=== PATIENT | female | born 1945 | race Caucasian/White ===

== ENCOUNTER 2016-07-14 12:33 | Observation (INO) ==
[2016-07-14] MEDS ORDERED: SODIUM CHLORIDE 0.9% 500 ML IV STA (12:54)
--- NOTE | 2016-07-14 12:57 | EKG Report ---
Stationary ECG Study [facility] ER Test Date: 07/14/2016 12:44:43 PM Pat Name: MIAN BRIGHT Department: Room: Gender: F Shank Carrier: : 1945 Requested by: Talon Garduno Order Number: [id number] Reading MD: ALISA BIRMINGHAM Intervals [place] Rate: 56 P: 55 CO: 165 QRS: 44 QRSD: 132 T: 92 QT: 459 QTc: 450 Interpretive Statements SINUS BRADYCARDIA NONSPECIFIC INTRAVENTRICULAR CONDUCTION BLOCK POSSIBLE ANTERIOR INFARCT, AGE UNDETERMINED Electronically Signed On 07-14-16 17:29:18 TRAFFIC SIGNAL TECHNICIAN by ALISA BIRMINGHAM [email or web address]
[2016-07-14 13:10] LABS: Basophils % 0.3 % (0.0-0.8); Eosinophils # 0.1 10*3/uL (0.0-0.87); Eosinophils % 1.9 % (0.00-10.9); Hematocrit 40.3 VOL% (35.7-47.0); Hemoglobin 13.3 GM/DL (12.0-16.0); Immature Granulocytes % 0.3 %; Immature Granulocytes Absolute 0.01 #; Lymphocytes # 0.8 10*3/uL (1.4-4.0); Lymphocytes % 23.1 % (21.3-54.2); Mean Corpuscular Hemoglobin 30 PG (27-34); Mean Platelet Volume 9.7 FL (9.6-12.0); Monocytes # 0.5 10*3/uL (0.11-0.8); Monocytes % 13.1 % (1.7-12.7); Neutrophils # 2.2 10*3/uL (1.4-7.4); Neutrophils % 61.3 % (38.7-73.9); Platelet Count 194 T/CUMM (130-400); Red Blood Count 4.43 MC/CUMM (3.8-5.5); Red Cell Distribution Width 12.7 % (9.3-17.3); White Blood Count 3.6 T/CUMM (4-12)
--- NOTE | 2016-07-14 13:11 | Emergency Department Note ---
Cristina Howard Brittany, am scribing for, and in the presence of, Talon Park MD 13: 00. Vivian Howard James D, MD, personally performed the services described in this documentation, ascribed by Priscila Evans in my presence, and it is both accurate and complete . Arrival - Arrival Chief Complaint: Syncope Stated Complaint: SYNCOPE/ LOW BP/ LOW HR ED Nursing Triage Note: c/o having syncope episode today at 1140 while sitting in sikh, family states that her heart rate was low during the episode, was evaluated by dr. khan on friday and hoilter monitor till , denies having chest pain, + sob., EKG obtained at time of triage Mode of Arrival: Wheelchair Limitations: No Limitations Source: Patient, Family, RN Notes Reviewed Time Seen by Provider: 07/14/16 12:46 - History of Present Illness HPI Narrative: This is a 70 y/o female,who presents to the ED S/P syncopal episode which happened at 1140 today. Her reports they were in sikh when pt passed out. He states pt laid her head on his shoulder and when he looked at her after several minutes and he noticed she was white in color. He reports pt was diaphoretic. Patient's daughter confirms the same. Pt denies any vomiting, diarrhea, dark black BM, or chest pain. She states she is SOB. Pt denies any pain. Pt has no other complaints/pain in the ED at this time. Pt has a PMHx of CVA, NIDDM, TIA, A-fib and dementia. Patient is a very poor historian. Pt has had neurological surgery. Pt denies a family medical Hx. Pt denies a social Hx. 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 Onset (ago): hour(s) (Happened at 1140) Consistency: constant Severity: moderate Allergies/Adverse Reactions: Allergies Allergy/AdvReac Type Severity Reaction Status Date / Time No Known Allergies Allergy Verified 07/14/16 12:42 Home Medications: Home Medications Medication Instructions Recorded Confirmed Type Levothyroxine Tab [Synthroid Tab] 25 mcg PO QAM 05/13/15 07/14/16 History Cetirizine Tab [ZyrTEC Tab] 10 mg PO BEDTIME 11/12/15 07/14/16 History Clopidogrel [Plavix] 75 mg PO QAM 11/12/15 07/14/16 History Isosorbide Mononitrate [Isosorbide 30 mg PO QAM 11/12/15 07/14/16 History Mononitrate ER] Magnesium Oxide [Magnesium] 400 mg PO QAM 11/12/15 07/14/16 History Pravastatin [Pravachol] 20 mg PO BEDTIME 11/12/15 07/14/16 History Spironolactone 12.5 mg PO QAM 11/12/15 07/14/16 History glipiZIDE [Glipizide] 10 mg PO BID 11/12/15 07/14/16 History Lisinopril [Prinivil] 20 mg PO BID #60 tablet 11/15/15 07/14/16 Rx Amlodipine Besylate [Amlodipine 2.5 mg PO QAM 07/14/16 07/14/16 History Besylate] Meclizine [Antivert] 25 mg PO QID PRN 07/14/16 07/14/16 History Metformin HCl 1,000 mg PO BID 07/14/16 07/14/16 History Review of System - Review of System 12 point system: reviewed and no additional remarkable complaints except as stated - Review of System Constitutional: Present: diaphoresis Cardiovascular: Present: syncope. Absent: chest pain, dyspnea on exertion Gastrointestinal: Absent: nausea, vomiting, diarrhea, melena, hematochezia Medical,Surgical,& Family Hx - Medical History Cardio: History of: Cardiac Dysrhythmia (Afib) Neurology: History of: Cerebrovascular Accident, Dementia, TIA Endocrine: History of: Diabetes Mellitus (NIDDM) - Surgical History Neurologic Surgeries: Surgical HX of: Neurologic Surgery - Social History Smoking Status: Never smoker Frequency of Alcohol Use: None Type of Drug Use: None Exam Vital Signs: Vital Signs Temperature 98.0 F 07/14/16 13:15 Pulse Rate 61 07/14/16 13:30 Respiratory Rate 16 07/14/16 13:15 Blood Pressure 132/46 07/14/16 13:30 O2 Sat by Pulse Oximetry 100 07/14/16 12:38 GENERAL: This is a thin, chronically ill-appearing white female in no apparent distress. VITAL SIGNS: Reviewed HEENT: Head is atraumatic and normocephalic. Pupils are equal round react to light. Extraocular movements are intact. Oropharynx is benign with moist mucous membranes. NECK: Neck is soft and supple without tenderness. There are no masses. There is no lymphadenopathy. LUNGS: Lungs are clear to auscultation. Chest rises symmetrically. There is no chest wall tenderness. CV: Heart is regular rate and rhythm without murmurs rubs or gallops. ABDOMEN: Abdomen is soft, nontender to palpation. There are no abdominal abnormal masses palpated. There is no organomegaly. Bowel sounds are present and active. SKIN: Skin is warm and dry. No rash. EXTREMITIES: Patient has full range of motion without tenderness. There is no pedal edema. NEUROLOGIC: Awake alert and oriented to person. Cranial nerves II through XII are grossly intact. Motor is 4 over 5 in all extremities bilaterally. Course - Consultations Consultation #1: Discussed with Dr. Diana. Patient will be admitted to his service. Initial orders written for him. Time: 14:06 Results - Labs CBC & BMP: 07/14/16 13:04 07/14/16 13:04 Lab Results: I have reviewed the patients labs Labs: Laboratory Tests 07/14/16 07/14/16 07/14/16 12:54 13:04 13:04 WBC 3.6 L Hgb 13.3 Hct 40.3 Plt Count 194 ABG pH 7.384 ABG pCO2 38.6 ABG pO2 132.0 H ABG HCO3 23.0 ABG Total CO2 20.3 L ABG O2 Saturation 99.0 ABG Base Excess -1.7 FiO2 28.00 Sodium Potassium Chloride Carbon Dioxide Anion Gap BUN Creatinine GFR Calculation BUN/Creatinine Ratio Glucose POC Glucose Calculated Osmolality Calcium Magnesium Total Bilirubin AST ALT Alkaline Phosphatase Troponin I Total Protein Albumin Globulin Albumin/Globulin Ratio Urine pH 6.0 Ur Specific Callahan 1.013 Urine WBC <1 Hyaline Casts 3 Urine Opiates Screen Ur Barbiturates Screen Ur Phencyclidine Scrn U Amphetamine/Methamph U Benzodiazepines Scrn U Cocaine Metab Screen U Cannabinoids Screen 07/14/16 07/14/16 07/14/16 13:04 13:04 13:09 WBC Hgb Hct Plt Count ABG pH ABG pCO2 ABG pO2 ABG HCO3 ABG Total CO2 ABG O2 Saturation ABG Base Excess FiO2 Sodium 142 Potassium 4.8 Chloride 105 Carbon Dioxide 26 Anion Gap 15.8 H BUN 18 Creatinine 1.00 GFR Calculation 53 BUN/Creatinine Ratio 18.00 Glucose 164 H POC Glucose 167 H Calculated Osmolality 288.1 Calcium 9.1 Magnesium 2.0 Total Bilirubin 0.50 AST 16 ALT 16 Alkaline Phosphatase 66 Troponin I < 0.015 Total Protein 7.0 Albumin 4.0 Globulin 3.0 Albumin/Globulin Ratio 1.3 Urine pH Ur Specific Callahan Urine WBC Hyaline Casts Urine Opiates Screen Negative Ur Barbiturates Screen Negative Ur Phencyclidine Scrn Negative U Amphetamine/Methamph Negative U Benzodiazepines Scrn Negative U Cocaine Metab Screen Negative U Cannabinoids Screen Negative - EKG EKG results: interpreted by ERMD - Impressions EKG: Sinus bradycardia with a rate of 56, nonspecific intraventricular conduction delay. Old anterior NH. Normal axis. - Diagnostic Findings Procedure: Chest x-ray: image reviewed by me (No cardiomegaly, no infiltrates, no pleural effusions.), CT: image reviewed by me (CT head: No acute intracranial lesions or hemorrhage.) Disposition Clinical Impression: Syncope, Essential hypertension, Dementia, Orthostasis Case discussed with: patient, patient's family Disposition: Still a Patient Condition: Stable Time of Disposition: 13:59
[2016-07-14 13:18] LABS: PT Patient Result 10.8 SECS
[2016-07-14 13:31] LABS: ABG Base Excess -1.7 MMOL/L (-2.5-2.5); ABG PCO2 38.6 MM HG (35-48); ABG PH 7.384 (7.35-7.45); ABG TCO2 20.3 MMOL/L (23-27); Allen Test Positive
--- NOTE | 2016-07-14 13:33 | CT Report ---
CT brain Indication: Syncope Comparison: 13 May 2015 Technique: Axial CT imaging of the brain is performed without contrast with 3 mm increments. Findings: No evidence of hemorrhage, mass mass effect midline shift or acute infarct seen. The brain parenchyma attenuation and differentiation appears within normal limits. The ventricles and cisterns are normal in caliber. No cranial or skull base abnormality is identified. Impression: No evidence of abnormality demonstrated. PROCEDURE INTERPRETED AT [facility] DEPARTMENT OF RADIOLOGY Final Report Signed by: Dr. Carter Myers
--- NOTE | 2016-07-14 13:35 | XRay Report ---
XR chest 1V portable Indication: Shortness of breath Comparison: 12 November 2015 Findings: The heart and mediastinum are normal in size and configuration. The pulmonary vascularity is normal in caliber. No lung infiltrates, effusions, pneumothorax or other abnormality is demonstrated. Impression: No acute findings or significant changes. PROCEDURE INTERPRETED AT [facility] DEPARTMENT OF RADIOLOGY Final Report Signed by: Dr. Carter Myers
[2016-07-14 13:36] LABS: Alanine Aminotransferase 16 U/L (13-56); Alkaline Phosphatase 66 U/L (45-117); Aspartate Amino Transferase 16 U/L (0-37); Blood Urea Nitrogen 18 MG/DL (7-18); Calcium 9.1 MG/DL (8.5-10.1); Glucose 164 MG/DL (74-106); Osmolality,Calculated 288.1 MOS/KG (273-304); Potassium 4.8 MMOL/L (3.5-5.1); Sodium 142 MMOL/L (136-145); Troponin I Only < 0.015 NG/ML (0.00-0.045)
[2016-07-14 13:43] LABS: Apearance,Urine CLEAR (Clear); Bilirubin,Urine Negative (Negative); Blood, Urine Negative (Negative); Glucose,Urine (UA) Negative (Negative); Hyaline Casts,Urine 3 /LPF (0-3); Ketones,Urine Negative (Negative); Mucus,Urine Occasional /LPF (Occasional); Nitrite,Urine Negative (Negative); Protein,Urine Negative; Urine Color Yellow (Yellow); Urine Specific Gravity 1.013 (1.001-1.035); Urine Urobilinogen < 2.0 EU/DL (0.2-1.0); WBC,Urine <1 /HPF (0-6)
[2016-07-14 13:49] LABS: Barbiturates Screen,Urine Negative (Negative); Benzodiazepines Screen,Urine Negative (Negative); Cannabinoid Screen,Urine Negative (Negative); Opiate Screen,Urine Negative (Negative); Phencyclidine Screen,Urine Negative (Negative)
[2016-07-14] MEDS ORDERED: MAGNESIUM SULF RIDER 4 GM in PREMIX 1 EACH IV PRN (15:34)
[2016-07-14] MEDS ORDERED: MAGNESIUM SULF RIDER 2 GM in PREMIX 1 EACH IV PRN (15:34)
[2016-07-14] MEDS: SODIUM CHLORIDE 0.9% 1,000 ML IV SCH (16:00)
[2016-07-14] MEDS: ENOXAPARIN 40 MG/0.4 ML SYRINGE SUBCUT SCH (16:01)
[2016-07-14 16:52] LABS: Troponin I Only < 0.015 NG/ML (0.00-0.045)
--- NOTE | 2016-07-14 17:12 | Cardiology History & Physical ---
Assessment and Plan (1) Left carotid bruit Status: Acute Current Visit: Yes (2) Orthostasis Status: Acute Current Visit: Yes (3) Syncope Status: Acute Assessment and plan: We will observe her rhythm. She had a 48 hour Holter monitor done in our office and that is going to be for review fairly soon. We will continue close observation of her blood pressure. Current Visit: Yes (4) Poorly-controlled hypertension Status: Acute Current Visit: No History of Present Illness Chief complaint: Fainted in yarsanism again today History of present illness: Ms. Dillon is a 70 year old female which was in the 25-30% range in July 2012 but gradually improved to the point it was normal. She has a history of hypertension history of sinus bradycardia she has a history related to TIAs. She says that she was in her usual state of health and was sitting in yarsanism and began to feel hot and flushed and then became very presyncopal to the point that she felt like she had to lie down. She was diaphoretic and her heart rate was in the 40s according to her family. She was able to recover and got to the emergency room for evaluation and was admitted for her syncopal episode. She has not had exertional anginal chest pain. She has no history related to orthopnea or PND. She did have some adjustment in her medications were Dr. Cooley at the clinic and he stopped her Coreg and put her on Norvasc 2.5 mg daily. It sounds as if she is having vagal reactions. We are going to rule out carotid arterial disease. She is also complained of some vertigo symptoms which have improved with the addition of Antivert by Dr. Solomon several days ago. Home Medications Medication Instructions Recorded Confirmed Type Levothyroxine Tab [Synthroid Tab] 25 mcg PO QAM 05/13/15 07/14/16 History Cetirizine Tab [ZyrTEC Tab] 10 mg PO BEDTIME 11/12/15 07/14/16 History Clopidogrel [Plavix] 75 mg PO QAM 11/12/15 07/14/16 History Isosorbide Mononitrate [Isosorbide 30 mg PO QAM 11/12/15 07/14/16 History Mononitrate ER] Magnesium Oxide [Magnesium] 400 mg PO QAM 11/12/15 07/14/16 History Pravastatin [Pravachol] 20 mg PO BEDTIME 11/12/15 07/14/16 History Spironolactone 12.5 mg PO QAM 11/12/15 07/14/16 History glipiZIDE [Glipizide] 10 mg PO BID 11/12/15 07/14/16 History Lisinopril [Prinivil] 20 mg PO BID #60 tablet 11/15/15 07/14/16 Rx Amlodipine Besylate [Amlodipine 2.5 mg PO QAM 07/14/16 07/14/16 History Besylate] Meclizine [Antivert] 25 mg PO QID PRN 07/14/16 07/14/16 History Memantine [Namenda] 10 mg PO BID 07/14/16 07/14/16 History Metformin HCl 1,000 mg PO BID 07/14/16 07/14/16 History Allergies Allergy/AdvReac Type Severity Reaction Status Date / Time No Known Allergies Allergy Verified 07/14/16 12:42 Medical,Surgical,& Family Hx - Medical History Cardio: History of: Cardiac Dysrhythmia (Afib), Hypertension Neurology: History of: Cerebrovascular Accident, Dementia, TIA Endocrine: History of: Diabetes Mellitus (NIDDM) - Surgical History Cardiac Surgeries: Sugical HX of: Cardiac Catheterization Neurologic Surgeries: Surgical HX of: Neurologic Surgery - Social History Smoking Status: Never smoker Frequency of Alcohol Use: None Type of Drug Use: None Cardiology Physical Exam - Constitutional Vitals: Vital Signs Temp Pulse Resp BP Pulse Ox 97.2 F L 68 20 134/76 96 07/14/16 16:00 07/14/16 16:00 07/14/16 16:00 07/14/16 16:00 07/14/16 16:00 Intake and Output 07/14/16 07/14/16 07/14/16 07:59 15:59 23:59 Intake Total 500 / 500 Balance 500 / 500 Intake: IV 500 / 500 Ns 500 ml @ 999 mls/hr IV 500 / 500 1X ED BOLUS STA Rx#: [id number] Other: Weight 58.967 kg Patient Weight 07/14/16 23:59 Weight 58.967 kg Exam: Physical examination: General: The patient is awake and alert and oriented -3. Mood and affect are normal. HEENT: Normocephalic, sclera are clear there are no lid xanthelasmas noted. Oral mucosa is free of cyanosis or pallor. Neck: The neck is supple without JVD. Carotid upstrokes are normal volume and amplitude. There is a low-grade bruit on the right.. There is no palpable thyroid. Trachea is midline. Chest: Lungs: The patient is comfortable at rest without intercostal retractions or abdominal breathing. There are no adventitial sounds rales rubs rhonchi or wheezes noted. Cardiovascular: The PMI is nondisplaced. No palpable thrill S3 or S4. There is a regular rate and rhythm with no murmur rub or gallop noted. Dorsalis pedis posterior tibial pulses are 1+ and equal and femoral pulses are 2+ and equal bilaterally. Abdomen: Abdomen is soft and nontender with normal active bowel sounds. There is no palpable mass or organomegaly noted. There is no midline bruit. Extremities exam: There is no cyanosis clubbing or edema. Skin: Skin is warm and dry without ecchymosis or urticaria or skin rash. There are no palpable nodules. Musculoskeletal: There is no kyphosis or scoliosis noted. Result/EKG - Labs CBC & BMP: 07/14/16 13:04 07/14/16 13:04 Labs: Laboratory Results - last 24 hr 07/14/16 16:10 Total Creatine Kinase 25 L CK-MB (CK-2) < 1.0 Troponin I < 0.015 - EKG EKG results: interpreted by me (Sinus rhythm left bundle branch block rate 60)
[2016-07-14] MEDS ORDERED: MECLIZINE 25 MG TABLET PO PRN (17:14)
[2016-07-14 20:08] LABS: Troponin I Only < 0.015 NG/ML (0.00-0.045)
[2016-07-14] MEDS: metFORMIN 500 MG TABLET PO SCH (20:55)
[2016-07-14] MEDS: glipiZIDE 10 MG TABLET PO SCH (20:55)
[2016-07-14] MEDS: PRAVASTATIN 20 MG TABLET PO SCH (20:55)
[2016-07-14] MEDS: LISINOPRIL 20 MG TABLET PO SCH (20:56)
[2016-07-14] MEDS: CETIRIZINE 10 MG TABLET PO SCH (20:56)
[2016-07-14] MEDS: MEMANTINE 10 MG TABLET PO SCH (20:56)
[2016-07-14 23:31] LABS: Troponin I Only < 0.015 NG/ML (0.00-0.045)
[2016-07-15] MEDS: SODIUM CHLORIDE 0.9% 1,000 ML IV SCH ×3 (03:55→16:42)
[2016-07-15] MEDS: LISINOPRIL 20 MG TABLET PO SCH ×3 (04:53→20:42)
[2016-07-15] MEDS: glipiZIDE 10 MG TABLET PO SCH ×2 (08:41→20:42)
[2016-07-15] MEDS: CLOPIDOGREL 75 MG TABLET PO SCH (08:41)
[2016-07-15] MEDS: MAGNESIUM OXIDE 400 MG TABLET PO SCH (08:41)
[2016-07-15] MEDS: LEVOTHYROXINE 25 MCG TABLET PO SCH (08:41)
[2016-07-15] MEDS: metFORMIN 500 MG TABLET PO SCH ×2 (08:41→20:42)
[2016-07-15] MEDS: SPIRONOLACTONE 25 MG TABLET PO SCH (08:42)
[2016-07-15] MEDS: MEMANTINE 10 MG TABLET PO SCH ×2 (08:42→20:43)
[2016-07-15] MEDS: ISOSORBIDE MONONITRATE 30 MG TABLET PO SCH (08:42)
[2016-07-15] MEDS ORDERED: amLODIPine 2.5 MG TABLET PO SCH (09:00)
--- NOTE | 2016-07-15 10:55 | Ultrasound Report ---
History: Presyncope. Carotid bruit Date: 07/15/2016 Study: Carotid duplex ultrasound Comparison exam: January 15, 2013 Color Doppler, wave form analysis, and grayscale analysis of the cervical carotid arteries was performed. There is mild partially calcified eccentric plaque in either carotid bulb, more on the right. Waveform analysis shows proper directional flow of the cervical carotid arteries. There is antegrade flow in either vertebral artery. The distal right ICA measures 3.6 mm diameter; the left measures 3.7 mm diameter. Peak systolic velocities are as follows: Right CCA 88 cm/s Right ICA 97 cm/s Right ECA 123 cm/s Right vertebral 65 cm/s Right IC/CC ratio 1.1 Left CCA 87 cm/s Left ICA 105 cm/s Left ECA 100 cm/s Left vertebral 58 cm/s Left IC/CC ratio 1.2 There is 0-15% diameter reduction narrowing of either internal carotid artery using indirect NASCET criteria. Ultrasound images were captured and archived. Impression: No hemodynamically significant internal carotid artery stenosis PROCEDURE INTERPRETED AT [facility] DEPARTMENT OF RADIOLOGY Final Report Signed by: Dr. Susie Agarwal
--- NOTE | 2016-07-15 11:33 | Cardiology Progress Note ---
Lm Howard April RN, am scribing for, and in the presence of, Gera Beckett MD 11:33. Assessment and Plan (1) Essential hypertension Status: Chronic Current Visit: Yes (2) Syncope Status: Acute Current Visit: Yes (3) Sinus bradycardia Status: Acute Current Visit: Yes Cardiology - PN: Subj Interval history: Ms. Dillon is routinely followed by Dr. Diana. She was admitted yesterday with a syncopal episode in mandaeism. She says she became diaphoretic and hot and flushed and passed out. She was sitting down at the time and did not hit her head. Her family states that her heart rate was in the 40s. She was seen in the clinic by Dr. Pond on July 09, 2016 with complaints of dizziness and vertigo 1 month. He stopped her Coreg, added meclizine 25 mg as needed and amlodipine 2.5 mg daily. She wore a 48 hour Holter, those results are not yet available. Today she denies chest pain, shortness of breath, or palpitations. She does state that she had some "swimmy headiness" while lying in bed last night and this morning. Oxygen is in use via nasal biprong, O2 sats have been 100%. CT of the head done yesterday was negative. Carotid Dopplers are pending. Pressures have been elevated during the night, systolic 150-175 diastolic 70- 80. Currently she is in sinus nakul with heart rates in the 50's. No labs drawn today except for glucose, it is 85. Serial cardiac biomarkers have been negative. Electrolytes checked yesterday were normal. Cardiology addendum Patient examined chart reviewed and discussed with the patient and her She feels better today. Telemetry shows steady sinus rhythm in the 60s no pauses or ectopy. Blood pressure 136/80 in the right arm by me. Decreased breath sounds but clear. Regular rhythm. No murmur or gallop. Abdomen soft benign. No leg edema. Echo Doppler done February 2016 showed ejection fraction of 53% with normal left atrial size, 1+ MR, mild LVH and normal RV function with mild TR. Carotid duplex showed hemodynamically insignificant disease bilaterally, less than 15% 48 hour Holter was done at the office on July 11 Impression Vasovagal syncope. confirms that patient has erratic eating and drinking habits Plan Continue normal saline hydration Monitor Awaiting 48 hour Holter report from [facility] office Probable home tomorrow Exam (Progress Note) - Constitutional Vitals: Period Temp Pulse Resp BP Sys/Paez Pulse Ox Last 24 Hr 96.8 F-99.0 F 58-69 16-20 134-174/51-80 94-100 General appearance: normal weight, no acute distress - Head Head exam: Absent: abrasion, hematoma - Eye Eye exam: Absent: periorbital swelling, laceration to eyelids - Neck Neck exam: Absent: tenderness - Respiratory Respiratory exam: Present: clear to auscultation bilaterally, other (Oxygen via nasal biprong). Absent: accessory muscle use, chest wall tenderness - Cardiovascular Cardiovascular exam: Present: bradycardia, regular rate and rhythm - GI/Abdominal GI/Abdominal exam: Present: normal bowel sounds, soft. Absent: distended, tenderness - Extremities Exam Extremities exam: Absent: edema - Neurological Exam Neurological exam: Present: alert, oriented X3 - Psychiatric Psychiatric exam: Present: normal affect, normal mood - Skin Skin exam: Present: warm, dry Result/EKG - Labs CBC & BMP: 07/14/16 13:04 07/14/16 13:04 Lab Results: I have reviewed the past 24 hour labs Labs: Laboratory Results - last 24 hr 07/14/16 07/14/16 07/14/16 16:10 19:18 19:37 POC Glucose 208 H Total Creatine Kinase 25 L 26 CK-MB (CK-2) < 1.0 < 1.0 Troponin I < 0.015 < 0.015 07/14/16 07/15/16 22:37 07:40 POC Glucose 85 Total Creatine Kinase 24 L CK-MB (CK-2) < 1.0 Troponin I < 0.015 - EKG EKG results: interpreted by me EKG shows: bradycardia, sinus rhythm I, Gera Beckett MD, personally performed the services described in this documentation, ascribed by Jennifer Amato RN in my presence, and it is both accurate and complete .
[2016-07-15] MEDS ORDERED: amLODIPine 2.5 MG TABLET PO ONE (12:09)
[2016-07-15] MEDS: ENOXAPARIN 40 MG/0.4 ML SYRINGE SUBCUT SCH (16:42)
--- NOTE | 2016-07-15 18:47 | ECHO Report ---
[place] Jessi Exam Date: 07/15/2016 14:02 Referring Physician: Technologist: Charisma Flynn RDCS Age: 70 Ht (in): Wt (lb): Gender: F Exam Location: [facility] Echo Indications: Syncope and collapse, Cardiomyopathy, unspecified, Orthostasis, Essential (primary) hypertension BP: / HR: Rhythm: Sinus Technical Quality: Good IMPRESSIONS EF 55-60 % . Grade I/IV diastolic dysfunction (abnormal relaxation filling pattern), normal to mildly elevated filling pressures. The right ventricle is normal in size and function. The right atrium is mildly enlarged. Mild atrial enlargement in apical view (elongated LA). Mildly thickened mitral valve. Trace mitral valve regurgitation. Aortic valve sclerosis. No aortic valve regurgitation. Mild tricuspid valve regurgitation. PAP40 mmHG. Pulmonic valve not well visualized. Normal pericardium without effusion. Normal ascending aorta dimension. MEASUREMENTS (Male / Female) Normal Values 2D ECHO LV Diastolic Diameter PLAX 4.2 cm 4.2 - 5.9 / 3.9 - 5.3 cm LV Systolic Diameter PLAX 3.0 cm LV Fractional Shortening PLAX 27.9 % IVS Diastolic Thickness 1.0 cm 0.6 - 1.0 / 0.6 - 0.9 cm LVPW Diastolic Thickness 1.0 cm 0.6 - 1.0 / 0.6 - 0.9 cm RV Internal Dim ED PLAX 3.0 cm Aortic Root Diameter 2.9 cm LA Systolic Diameter LX 3.4 cm 3.0 - 4.0 / 2.7 - 3.8 cm DOPPLER TR Peak Velocity 273.0 cm/s TR Peak Gradient 29.8 mmHg FINDINGS Left Ventricle EF 55-60 %, Grade I/IV diastolic dysfunction (abnormal relaxation filling pattern), normal to mildly elevated filling pressures. Right Ventricle The right ventricle is normal in size and function. Right Atrium The right atrium is mildly enlarged. Left Atrium Mild atrial enlargement in apical view (elongated LA). Mitral Valve Mildly thickened mitral valve. Trace mitral valve regurgitation. Aortic Valve Aortic valve sclerosis. No aortic valve regurgitation. Tricuspid Valve Morphologically normal tricuspid valve. Mild tricuspid valve regurgitation. PAP40 mmHG. Pulmonic Valve Pulmonic valve not well visualized. Pericardium Normal pericardium without effusion. Aorta Normal ascending aorta dimension. Gabe Beckett (Electronically Signed) Final Date: 15 July 2016 18:46
[2016-07-15] MEDS: CETIRIZINE 10 MG TABLET PO SCH (20:42)
[2016-07-15] MEDS: PRAVASTATIN 20 MG TABLET PO SCH (20:42)
[2016-07-15] MEDS: hydrALAZINE 25 MG TABLET PO SCH (20:42)
[2016-07-16] MEDS: SODIUM CHLORIDE 0.9% 1,000 ML IV SCH ×2 (04:17→13:02)
[2016-07-16] MEDS: metFORMIN 500 MG TABLET PO SCH (08:47)
[2016-07-16] MEDS: LEVOTHYROXINE 25 MCG TABLET PO SCH (08:47)
[2016-07-16] MEDS: glipiZIDE 10 MG TABLET PO SCH (08:47)
[2016-07-16] MEDS: hydrALAZINE 25 MG TABLET PO SCH (08:47)
[2016-07-16] MEDS: MEMANTINE 10 MG TABLET PO SCH (08:48)
[2016-07-16] MEDS: LISINOPRIL 20 MG TABLET PO SCH (08:48)
[2016-07-16] MEDS: MAGNESIUM OXIDE 400 MG TABLET PO SCH (08:48)
[2016-07-16] MEDS: SPIRONOLACTONE 25 MG TABLET PO SCH (08:48)
[2016-07-16] MEDS: ISOSORBIDE MONONITRATE 30 MG TABLET PO SCH (08:48)
[2016-07-16] MEDS: CLOPIDOGREL 75 MG TABLET PO SCH (08:48)
[2016-07-16] MEDS ORDERED: amLODIPine 5 MG TABLET PO SCH (09:00)
[2016-07-16 11:28] VITALS: BP 151/63
[2016-07-16] MEDS ORDERED: amLODIPine 10 MG TABLET PO SCH (11:30)
--- NOTE | 2016-07-16 12:09 | Discharge Summary ---
Lm Howard April RN, am scribing for, and in the presence of, Gera Beckett MD 12:08. Hospital Course - Hospital Course Hospital Course: Ms. Dillon is routinely followed by Dr. Diana. She was admitted Friday with a syncopal episode in [facility]. She says she became diaphoretic and hot and flushed and passed out. She was sitting down at the time and did not hit her head. Her family states that her heart rate was in the 40s. She was seen in the clinic by Dr. Cooley on July 09, 2016 with complaints of dizziness and vertigo 1 month. He stopped her Coreg, added meclizine 25 mg as needed and amlodipine 2.5 mg daily. She wore a 48 hour Holter. The Holter was read as normal with minimum heart rate being recorded at 44 bpm and the maximum at 98 bpm, the mean heart rate was 65 bpm. During admission her amlodipine has been increased to 10 mg p.o. daily. Her pressures have improved, this morning' s blood pressure was 151/63. She is currently in sinus rhythm, heart rates have been in the 50s and 60s throughout this admission. Carotid Doppler done yesterday showed no hemodynamically significant internal carotid artery stenosis , less than 15% bilaterally. CT of the head done July 14 was negative. Echo Doppler done in February 2016 showed ejection fraction 53% with normal left atrial size, 1+ MR, mild LVH and normal RV function with mild TR. Today she denies chest pain, shortness of breath, dizziness, or feelings of syncope or near syncope. She has been ambulating in the [place] without difficulty. Impression Vasovagal syncope--discussed with patient, , and family the importance of patient improving her eating and drinking habits. Plan We will discharge home today on increased dose of amlodipine. - Time spent with patient Time with patient DS: Greater than 30 minutes Diagnosis - Discharge Diagnosis (1) Essential hypertension Status: Resolved (2) Syncope Status: Resolved (3) Sinus bradycardia Status: Chronic Specialty Discharge - Follow Up or Referrals Follow up with: Jay Jay Diana MD [Physician] - 2 Weeks Discharge Plan - Discharge Data Disposition: Disch To Home/Self Care Condition at Discharge: Stable Discharge Diet: heart healthy Activity: resume usual activities as tolerated Hygiene: no restrictions Weight Bearing at Discharge: weight bear as tolerated Driving: no restrictions Contact your physician if you experience:: fever over 101, Difficulty voiding, Redness or swelling, Nausea/Vomiting, Shortness of breath, Bleeding, pain uncontrolled by pain medications - Discharge Medications New amLODIPine [Norvasc] 10 mg PO DAILY #30 tablet Continue Levothyroxine Tab [Synthroid Tab] 25 mcg PO QAM Isosorbide Mononitrate [Isosorbide Mononitrate ER] 30 mg PO QAM Magnesium Oxide [Magnesium] 400 mg PO QAM Pravastatin [Pravachol] 20 mg PO BEDTIME Clopidogrel [Plavix] 75 mg PO QAM glipiZIDE [Glipizide] 10 mg PO BID Cetirizine Tab [ZyrTEC Tab] 10 mg PO BEDTIME Spironolactone 12.5 mg PO QAM Lisinopril [Prinivil] 20 mg PO BID #60 tablet Metformin HCl 1,000 mg PO BID Meclizine [Antivert] 25 mg PO QID PRN PRN Reason: Dizziness Memantine [Namenda] 10 mg PO BID Discontinued Amlodipine Besylate [Amlodipine Besylate] 2.5 mg PO QAM - Follow Up or Referral Follow Up: Jay Jay Diana MD [Physician] - 2 Weeks - Forms/Instructions Exam - Constitutional Vitals: Period Temp Pulse Resp BP Sys/Paez Pulse Ox Last 24 Hr 96.8 F-98.2 F 50-79 16-20 126-192/49-79 94-100 General appearance: normal weight, no acute distress - Head Head exam: Absent: abrasion, hematoma - Eye Eye exam: Absent: periorbital swelling, laceration to eyelids - Neck Neck exam: Absent: tenderness - Respiratory Respiratory exam: Present: clear to auscultation bilaterally. Absent: accessory muscle use, chest wall tenderness - Cardiovascular Cardiovascular exam: Present: bradycardia, regular rate and rhythm - GI/Abdominal GI/Abdominal exam: Present: normal bowel sounds, soft. Absent: distended, tenderness - Extremities Exam Extremities exam: Absent: edema - Neurological Exam Neurological exam: Present: alert, oriented X3 - Psychiatric Psychiatric exam: Present: normal affect, normal mood - Skin Skin exam: Present: warm, dry Discharge Results Labs on day of discharge: Labs from last 24 hours 07/16/16 07/15/16 07/15/16 07:16 19:14 15:35 POC Glucose 130 H 98 157 H 07/15/16 11:51 POC Glucose 181 H - Imaging and Cardiology Cardiology Procedure: report reviewed by me (48 hour Holter done at [facility]) Procedure: Chest x-ray: report reviewed by me DS: Provider Consults: 07/14/16 16:46 Consult to Pharmacy [CONS] Routine Reason for Pharmacy Consult: Adjust Meds Renal Funct Sophy Howard Thomas, MD, personally performed the services described in this documentation, ascribed by Jennifer Amato RN in my presence, and it is both accurate and complete .
== END 2016-07-16 14:14 | disposition home or self-care (01) | DRG 312 ==
LOC: N.ED 12:33 → N.EDINP 14:06 → INTOOBSV 14:06 → N.TELES 15:00
PROVIDERS: ADMIT Internal Medicine Interventional Cardiology; ATTEND Internal Medicine Interventional Cardiology

== ENCOUNTER 2017-05-19 11:38 | Observation (INO) ==
[2017-05-19] MEDS ORDERED: SODIUM CHLORIDE 0.9% 500 ML IV STA (12:03)
[2017-05-19] MEDS ORDERED: ATROPINE 1 MG/10 ML SYRINGE IV STA (12:05)
[2017-05-19] MEDS ORDERED: ATROPINE 1 MG/1 ML VIAL ONE (12:05)
[2017-05-19 12:10] LABS: Basophils % 0.5 % (0.0-0.8); Eosinophils # 0.1 10*3/uL (0.0-0.87); Hematocrit 38.8 VOL% (35.7-47.0); Hemoglobin 12.9 GM/DL (12.0-16.0); Immature Granulocytes % 0.5 %; Immature Granulocytes Absolute 0.02 #; Lymphocytes # 1.3 10*3/uL (1.4-4.0); Lymphocytes % 33.7 % (21.3-54.2); Mean Corpuscular HGB Conc 33.2 GM/DL (32-36); Mean Corpuscular Hemoglobin 30 PG (27-34); Mean Corpuscular Volume 90.9 FL (87-102); Mean Platelet Volume 9.6 FL (9.6-12.0); Monocytes # 0.4 10*3/uL (0.11-0.8); Monocytes % 10.2 % (1.7-12.7); Neutrophils # 1.9 10*3/uL (1.4-7.4); Neutrophils % 52.1 % (38.7-73.9); Platelet Count 230 T/CUMM (130-400); Red Blood Count 4.27 MC/CUMM (3.8-5.5); Red Cell Distribution Width 13.2 % (9.3-17.3); White Blood Count 3.7 T/CUMM (4-12)
[2017-05-19 12:19] LABS: PT Patient Result 10.4 SECS
[2017-05-19 12:47] LABS: Alanine Aminotransferase 16 U/L (13-56); Alkaline Phosphatase 75 U/L (45-117); Aspartate Amino Transferase 17 U/L (0-37); Blood Urea Nitrogen 16 MG/DL (7-18); Calcium 9.2 MG/DL (8.5-10.1); Free T4 (Free Thyroxine) 1.21 NG/DL (0.76-1.46); Glucose 201 MG/DL (74-106); Magnesium 1.6 MG/DL (1.8-2.4); Osmolality,Calculated 285.4 MOS/KG (273-304); Potassium 4.2 MMOL/L (3.5-5.1); Sodium 140 MMOL/L (136-145); Total Protein 6.8 G/DL (6.4-8.3); Troponin I Only < 0.015 NG/ML (0.00-0.045)
[2017-05-19 13:21] LABS: Apearance,Urine Slightly Hazy (Clear); Bacteria,Urine Occasional /HPF (Few); Bilirubin,Urine Negative (Negative); Blood, Urine Small mg/dL (Negative); Glucose,Urine (UA) 50 mg/dL (Negative); Granular Casts,Urine 5 /LPF (0-1); Hyaline Casts,Urine 168 /LPF (0-3); Ketones,Urine Negative (Negative); Mucus,Urine Few /LPF (Occasional); Nitrite,Urine Negative (Negative); Protein,Urine 30 MG/DL; RBC,Urine 2 /HPF (0-4); Squamous Epithelial Cell,Urine Occasional /HPF (0-10); Urine Color Yellow (Yellow); Urine Specific Gravity 1.018 (1.001-1.035); WBC,Urine 14 /HPF (0-6)
[2017-05-19] MEDS ORDERED: cefTRIAXone 1,000 MG in SODIUM CHLORIDE 0.9% 100 ML IV STA (13:29)
[2017-05-19] MEDS ORDERED: MAGNESIUM SULF RIDER 2 GM in PREMIX 1 EACH IV STA (13:29)
[2017-05-19] MEDS ORDERED: cefTRIAXone 1,000 MG VIAL ONE (13:33)
[2017-05-19] MEDS ORDERED: MAGNESIUM SULF RIDER 50 ML IV ONE (13:33)
[2017-05-19] MEDS ORDERED: ONDANSETRON 4 MG/2 ML VIAL IV PRN (15:37)
[2017-05-19] MEDS ORDERED: ACETAMINOPHEN 325 MG TABLET PO PRN (15:37)
[2017-05-19] MEDS ORDERED: BISACODYL 5 MG TABLET PO PRN (15:37)
[2017-05-19] MEDS ORDERED: LEVOFLOXACIN INJ 500 MG in PREMIX 1 EACH IV SCH (16:00)
[2017-05-19] MEDS ORDERED: GLUCAGON 1 MG VIAL IM PRN (17:03)
[2017-05-19] MEDS ORDERED: DEXTROSE 50% 25 GM/50 ML VIAL IV PRN (17:03)
[2017-05-19] MEDS ORDERED: LEVOFLOXACIN INJ 100 ML IV ONE (17:16)
[2017-05-19] MEDS: SODIUM CHLORIDE 0.9% 1,000 ML IV SCH (17:20)
[2017-05-20 07:12] LABS: Basophils % 0.4 % (0.0-0.8); Eosinophils # 0.1 10*3/uL (0.0-0.87); Hematocrit 34.4 VOL% (35.7-47.0); Hemoglobin 11.8 GM/DL (12.0-16.0); Lymphocytes # 0.8 10*3/uL (1.4-4.0); Lymphocytes % 30.8 % (21.3-54.2); Mean Corpuscular HGB Conc 34.3 GM/DL (32-36); Mean Corpuscular Hemoglobin 30 PG (27-34); Mean Corpuscular Volume 88.7 FL (87-102); Mean Platelet Volume 9.7 FL (9.6-12.0); Monocytes # 0.3 10*3/uL (0.11-0.8); Neutrophils # 1.4 10*3/uL (1.4-7.4); Neutrophils % 53.8 % (38.7-73.9); Platelet Count 199 T/CUMM (130-400); Red Blood Count 3.88 MC/CUMM (3.8-5.5); Red Cell Distribution Width 12.9 % (9.3-17.3); White Blood Count 2.7 T/CUMM (4-12)
[2017-05-20 07:26] LABS: Calcium 8.3 MG/DL (8.5-10.1)
[2017-05-20] MEDS: PANTOPRAZOLE 40 MG TABLET PO SCH (09:32)
[2017-05-20] MEDS: SODIUM CHLORIDE 0.9% 1,000 ML IV SCH (14:52)
[2017-05-20] MEDS ORDERED: GLUCAGON 1 MG VIAL IM PRN (15:17)
[2017-05-20] MEDS ORDERED: DEXTROSE 50% 25 GM/50 ML VIAL IV PRN (15:17)
[2017-05-20] MEDS ORDERED: LEVOFLOXACIN INJ 250 MG in PREMIX 1 EACH IV SCH (21:00)
[2017-05-20] MEDS: metFORMIN 500 MG TABLET PO SCH (21:23)
[2017-05-20] MEDS: LISINOPRIL 20 MG TABLET PO SCH (21:28)
[2017-05-20] MEDS: PRAVASTATIN 20 MG TABLET PO SCH (21:28)
[2017-05-20] MEDS: MEMANTINE 10 MG TABLET PO SCH (21:28)
[2017-05-20] MEDS: CETIRIZINE 10 MG TABLET PO SCH (21:29)
[2017-05-21 05:43] LABS: Basophils % 0.4 % (0.0-0.8); Eosinophils # 0.1 10*3/uL (0.0-0.87); Hematocrit 33.3 VOL% (35.7-47.0); Immature Granulocytes % 0.4 %; Immature Granulocytes Absolute 0.01 #; Lymphocytes # 0.9 10*3/uL (1.4-4.0); Lymphocytes % 37.5 % (21.3-54.2); Mean Corpuscular Hemoglobin 30 PG (27-34); Mean Corpuscular Volume 90.2 FL (87-102); Mean Platelet Volume 9.6 FL (9.6-12.0); Monocytes # 0.3 10*3/uL (0.11-0.8); Monocytes % 12.4 % (1.7-12.7); Neutrophils # 1.1 10*3/uL (1.4-7.4); Neutrophils % 45.3 % (38.7-73.9); Platelet Count 173 T/CUMM (130-400); Red Blood Count 3.69 MC/CUMM (3.8-5.5); Red Cell Distribution Width 12.9 % (9.3-17.3); White Blood Count 2.5 T/CUMM (4-12)
[2017-05-21 06:04] LABS: Ovalocytes Slight
[2017-05-21 06:05] LABS: Microcytosis Slight; Platelet Estimate Adequate
[2017-05-21 06:20] LABS: Magnesium 1.6 MG/DL (1.8-2.4); Osmolality,Calculated 287.8 MOS/KG (273-304); Potassium 4.3 MMOL/L (3.5-5.1)
[2017-05-21 06:25] LABS: Calcium 8.4 MG/DL (8.5-10.1); Osmolality,Calculated 287.8 MOS/KG (273-304); Potassium 4.3 MMOL/L (3.5-5.1)
[2017-05-21] MEDS ORDERED: DIAZEPAM 5 MG TABLET PO ONE (08:00)
[2017-05-21] MEDS ORDERED: diphenhydrAMINE CAP 25 MG CAPSULE PO ONE (08:00)
[2017-05-21] MEDS ORDERED: ceFAZolin 1,000 MG VIAL IRRIG ONE (08:00)
[2017-05-21] MEDS ORDERED: ceFAZolin 1,000 MG in SYRINGE 1 EACH IV ONE (08:00)
[2017-05-21] MEDS ORDERED: HEPARIN/NACL 0.9% 2 UNITS/ML 1,000 ML IV ONE (08:30)
[2017-05-21] MEDS ORDERED: MIDAZOLAM 2 MG/2 ML VIAL IV ONE (08:30)
[2017-05-21] MEDS ORDERED: LIDOCAINE 1% 20 ML VIAL IM ONE (08:30)
[2017-05-21] MEDS ORDERED: fentaNYL 100 MCG/2 ML VIAL IV ONE (08:30)
[2017-05-21] MEDS ORDERED: TISSUE ADHESIVE 1 EACH APPLICATOR TOP ONE (08:30)
[2017-05-21] MEDS ORDERED: PANTOPRAZOLE 40 MG TABLET PO SCH (09:00)
[2017-05-21] MEDS: CLOPIDOGREL 75 MG TABLET PO SCH (10:50)
[2017-05-21] MEDS: metFORMIN 500 MG TABLET PO SCH ×2 (10:51→21:36)
[2017-05-21] MEDS: MEMANTINE 10 MG TABLET PO SCH ×2 (11:48→21:36)
[2017-05-21] MEDS: ISOSORBIDE MONONITRATE 30 MG TABLET PO SCH (11:48)
[2017-05-21] MEDS: LISINOPRIL 20 MG TABLET PO SCH ×2 (11:48→21:36)
[2017-05-21] MEDS: LEVOTHYROXINE 25 MCG TABLET PO SCH (11:49)
[2017-05-21] MEDS: PANTOPRAZOLE 40 MG TABLET PO SCH (11:49)
[2017-05-21] MEDS: MAGNESIUM OXIDE 400 MG TABLET PO SCH (11:49)
[2017-05-21] MEDS: amLODIPine 5 MG TABLET PO SCH (11:49)
[2017-05-21] MEDS ORDERED: MAGNESIUM SULF RIDER 2 GM in PREMIX 1 EACH IV PRN (13:52)
[2017-05-21] MEDS ORDERED: MAGNESIUM SULF RIDER 2 GM in PREMIX 1 EACH IV ONE (16:00)
[2017-05-21] MEDS: VANCOMYCIN INJ 1,000 MG in SODIUM CHLORIDE 0.9% 250 ML IV SCH (17:17)
[2017-05-21] MEDS: PRAVASTATIN 20 MG TABLET PO SCH (21:36)
[2017-05-21] MEDS: CETIRIZINE 10 MG TABLET PO SCH (21:36)
[2017-05-22] MEDS: VANCOMYCIN INJ 1,000 MG in SODIUM CHLORIDE 0.9% 250 ML IV SCH (05:24)
[2017-05-22 06:32] LABS: Basophils % 0.4 % (0.0-0.8); Eosinophils # 0.1 10*3/uL (0.0-0.87); Eosinophils % 3.4 % (0.00-10.9); Hematocrit 33.7 VOL% (35.7-47.0); Hemoglobin 11.4 GM/DL (12.0-16.0); Immature Granulocytes % 0.4 %; Immature Granulocytes Absolute 0.01 #; Lymphocytes # 0.7 10*3/uL (1.4-4.0); Lymphocytes % 25.8 % (21.3-54.2); Mean Corpuscular HGB Conc 33.8 GM/DL (32-36); Mean Corpuscular Hemoglobin 30 PG (27-34); Mean Corpuscular Volume 89.6 FL (87-102); Mean Platelet Volume 9.8 FL (9.6-12.0); Monocytes # 0.4 10*3/uL (0.11-0.8); Monocytes % 13.5 % (1.7-12.7); Neutrophils # 1.5 10*3/uL (1.4-7.4); Neutrophils % 56.5 % (38.7-73.9); Platelet Count 175 T/CUMM (130-400); Red Blood Count 3.76 MC/CUMM (3.8-5.5); Red Cell Distribution Width 12.7 % (9.3-17.3); White Blood Count 2.7 T/CUMM (4-12)
[2017-05-22 06:56] LABS: Osmolality,Calculated 283.3 MOS/KG (273-304); Potassium 4.2 MMOL/L (3.5-5.1)
[2017-05-22] MEDS: ISOSORBIDE MONONITRATE 30 MG TABLET PO SCH (11:17)
[2017-05-22] MEDS: amLODIPine 5 MG TABLET PO SCH (11:18)
[2017-05-22] MEDS: metFORMIN 500 MG TABLET PO SCH (11:18)
[2017-05-22] MEDS: LISINOPRIL 20 MG TABLET PO SCH (11:19)
[2017-05-22] MEDS: PANTOPRAZOLE 40 MG TABLET PO SCH (11:19)
[2017-05-22] MEDS: MEMANTINE 10 MG TABLET PO SCH (11:19)
[2017-05-22] MEDS: LEVOTHYROXINE 25 MCG TABLET PO SCH (11:19)
[2017-05-22] MEDS: CLOPIDOGREL 75 MG TABLET PO SCH (11:19)
[2017-05-22] MEDS: MAGNESIUM OXIDE 400 MG TABLET PO SCH (11:19)
[2017-05-22 11:45] VITALS: BP 140/73
== END 2017-05-22 13:30 | disposition home health service (06) ==
LOC: SUATTDRO → N.EDINP 11:38 → N.ED 11:38 → N.2E 19:57
PROVIDERS: ADMIT Internal Medicine; ATTEND Internal Medicine

== ENCOUNTER 2018-06-09 20:32 | Inpatient (IN) ==
[2018-06-09] MEDS ORDERED: ONDANSETRON 4 MG/2 ML VIAL IV STA (21:26)
[2018-06-09] MEDS ORDERED: MORPHINE 4 MG/1 ML VIAL IV STA (21:26)
[2018-06-09] MEDS ORDERED: PANTOPRAZOLE 40 MG VIAL IV STA (21:26)
[2018-06-09] MEDS ORDERED: SODIUM CHLORIDE 0.9% 500 ML IV STA (21:26)
[2018-06-09 22:09] LABS: Basophils % 0.2 % (0.0-0.8); Eosinophils # 0.1 10*3/uL (0.0-0.87); Eosinophils % 0.9 % (0.00-10.9); Hematocrit 37.7 VOL% (35.7-47.0); Hemoglobin 12.2 GM/DL (12.0-16.0); Immature Granulocytes % 0.5 %; Immature Granulocytes Absolute 0.03 #; Lymphocytes % 15.6 % (21.3-54.2); Mean Corpuscular HGB Conc 32.4 GM/DL (32-36); Mean Corpuscular Hemoglobin 29 PG (27-34); Mean Corpuscular Volume 90.8 FL (87-102); Mean Platelet Volume 9.5 FL (9.6-12.0); Monocytes # 0.8 10*3/uL (0.11-0.8); Monocytes % 11.5 % (1.7-12.7); Neutrophils # 4.7 10*3/uL (1.4-7.4); Neutrophils % 71.3 % (38.7-73.9); Platelet Count 239 T/CUMM (130-400); Red Blood Count 4.15 MC/CUMM (3.8-5.5); Red Cell Distribution Width 13.2 % (9.3-17.3); White Blood Count 6.6 T/CUMM (4-12)
[2018-06-09 22:30] LABS: Albumin 3.7 G/DL (3.4-5.0); Bilirubin,Total 0.4 MG/DL (0.2-1.0); Calcium 8.6 MG/DL (8.5-10.1); Osmolality,Calculated 277.4 MOS/KG (273-304); Potassium 4.3 MMOL/L (3.5-5.1); Total Protein 7.1 G/DL (6.4-8.3)
[2018-06-09] MEDS ORDERED: DEXTROSE 50% 25 GM/50 ML VIAL IV STA (22:59)
[2018-06-10] MEDS ORDERED: LEVOFLOXACIN INJ 750 MG in PREMIX 1 EACH IV STA (00:23)
[2018-06-10] MEDS ORDERED: metroNIDAZOLE INJ 500 MG in PREMIX 1 EACH IV STA (00:23)
[2018-06-10 00:34] LABS: Apearance,Urine CLEAR (Clear); Bilirubin,Urine Negative (Negative); Blood, Urine Negative (Negative); Glucose,Urine (UA) 150 mg/dL (Negative); Ketones,Urine Negative (Negative); Mucus,Urine Occasional /LPF (Occasional); Nitrite,Urine Negative (Negative); Protein,Urine Negative; RBC,Urine 1 /HPF (0-4); Squamous Epithelial Cell,Urine Occasional /HPF (0-10); Urine Color Yellow (Yellow); Urine Specific Gravity 1.031 (1.001-1.035); Urine Urobilinogen < 2.0 EU/DL (0.2-1.0); WBC,Urine <1 /HPF (0-6)
[2018-06-10] MEDS ORDERED: MORPHINE 4 MG/1 ML VIAL IV PRN (00:44)
[2018-06-10] MEDS ORDERED: ONDANSETRON 4 MG/2 ML VIAL IV PRN (00:44)
[2018-06-10] MEDS ORDERED: DEXTROSE 50% 25 GM/50 ML SYRINGE IV PRN (01:05)
[2018-06-10] MEDS ORDERED: GLUCAGON 1 MG VIAL IM PRN (01:05)
[2018-06-10] MEDS: SODIUM CHLORIDE 0.9% 1,000 ML IV SCH ×2 (02:10→14:49)
[2018-06-10] MEDS: ENOXAPARIN 40 MG/0.4 ML SYRINGE SUBCUT SCH (02:20)
[2018-06-10 07:54] LABS: Basophils % 0.3 % (0.0-0.8); Eosinophils # 0.1 10*3/uL (0.0-0.87); Eosinophils % 2.4 % (0.00-10.9); Hematocrit 32.6 VOL% (35.7-47.0); Hemoglobin 10.3 GM/DL (12.0-16.0); Immature Granulocytes % 0.3 %; Immature Granulocytes Absolute 0.01 #; Lymphocytes # 0.7 10*3/uL (1.4-4.0); Lymphocytes % 18.1 % (21.3-54.2); Mean Corpuscular HGB Conc 31.6 GM/DL (32-36); Mean Corpuscular Hemoglobin 29 PG (27-34); Mean Corpuscular Volume 91.6 FL (87-102); Mean Platelet Volume 9.4 FL (9.6-12.0); Monocytes # 0.5 10*3/uL (0.11-0.8); Monocytes % 13.3 % (1.7-12.7); Neutrophils # 2.5 10*3/uL (1.4-7.4); Neutrophils % 65.6 % (38.7-73.9); Platelet Count 186 T/CUMM (130-400); Red Blood Count 3.56 MC/CUMM (3.8-5.5); Red Cell Distribution Width 13.2 % (9.3-17.3); White Blood Count 3.8 T/CUMM (4-12)
[2018-06-10 08:33] LABS: Albumin 2.8 G/DL (3.4-5.0); Bilirubin,Total 0.4 MG/DL (0.2-1.0); Calcium 7.6 MG/DL (8.5-10.1); Osmolality,Calculated 279.4 MOS/KG (273-304); Potassium 4.1 MMOL/L (3.5-5.1); Total Protein 5.8 G/DL (6.4-8.3)
[2018-06-10] MEDS: PANTOPRAZOLE 40 MG TABLET PO SCH (09:05)
[2018-06-10] MEDS: INSULIN REGULAR 100 UNIT/ML SUBCUT SCH ×4 (09:05→20:57)
[2018-06-10] MEDS: metroNIDAZOLE INJ 500 MG in PREMIX 1 EACH IV SCH ×3 (09:13→21:18)
[2018-06-11] MEDS: ENOXAPARIN 40 MG/0.4 ML SYRINGE SUBCUT SCH (00:37)
[2018-06-11] MEDS ORDERED: LEVOFLOXACIN INJ 500 MG in PREMIX 1 EACH IV SCH (01:00)
[2018-06-11] MEDS: metroNIDAZOLE INJ 500 MG in PREMIX 1 EACH IV SCH ×2 (03:08→09:12)
[2018-06-11 05:06] LABS: Basophils % 0.4 % (0.0-0.8); Eosinophils # 0.1 10*3/uL (0.0-0.87); Eosinophils % 3.2 % (0.00-10.9); Hematocrit 32.6 VOL% (35.7-47.0); Hemoglobin 10.5 GM/DL (12.0-16.0); Immature Granulocytes % 0.4 %; Immature Granulocytes Absolute 0.01 #; Lymphocytes # 0.8 10*3/uL (1.4-4.0); Lymphocytes % 27.5 % (21.3-54.2); Mean Corpuscular HGB Conc 32.2 GM/DL (32-36); Mean Corpuscular Hemoglobin 29 PG (27-34); Mean Corpuscular Volume 91.1 FL (87-102); Mean Platelet Volume 9.7 FL (9.6-12.0); Monocytes # 0.4 10*3/uL (0.11-0.8); Monocytes % 14.1 % (1.7-12.7); Neutrophils # 1.6 10*3/uL (1.4-7.4); Neutrophils % 54.4 % (38.7-73.9); Platelet Count 175 T/CUMM (130-400); Red Blood Count 3.58 MC/CUMM (3.8-5.5); White Blood Count 2.8 T/CUMM (4-12)
[2018-06-11 05:23] LABS: Calcium 7.4 MG/DL (8.5-10.1); Osmolality,Calculated 285.8 MOS/KG (273-304); Potassium 3.8 MMOL/L (3.5-5.1)
[2018-06-11] MEDS: INSULIN REGULAR 100 UNIT/ML SUBCUT SCH ×2 (09:08→12:50)
[2018-06-11] MEDS: PANTOPRAZOLE 40 MG TABLET PO SCH (09:13)
[2018-06-11] MEDS ORDERED: MAGNESIUM SULF RIDER 2 GM in PREMIX 1 EACH IV PRN (11:08)
[2018-06-11] MEDS ORDERED: MAGNESIUM SULF RIDER 4 GM in PREMIX 1 EACH IV PRN (11:08)
[2018-06-11 11:10] VITALS: BP 126/58
[2018-06-11] MEDS ORDERED: DONEPEZIL 10 MG TABLET PO SCH (12:00)
[2018-06-11] MEDS ORDERED: CLOPIDOGREL 75 MG TABLET PO SCH (12:00)
[2018-06-11] MEDS ORDERED: METOPROLOL SUCCINATE XL 25 MG TABLET PO SCH (12:00)
[2018-06-11] MEDS ORDERED: HALOPERIDOL 1 MG TABLET PO SCH (12:00)
[2018-06-11] MEDS ORDERED: LEVOTHYROXINE 25 MCG TABLET PO SCH (19:00)
[2018-06-11] MEDS ORDERED: glipiZIDE 10 MG TABLET PO SCH (21:00)
[2018-06-11] MEDS ORDERED: MEMANTINE 10 MG TABLET PO SCH (21:00)
[2018-06-11] MEDS ORDERED: CETIRIZINE 10 MG TABLET PO SCH (21:00)
[2018-06-11] MEDS ORDERED: metFORMIN 500 MG TABLET PO SCH (21:00)
[2018-06-12] MEDS ORDERED: CALCIUM (CARBONATE)/VITAMIN D 600 MG-400 UNIT TABLET PO SCH (09:00)
[2018-06-12] MEDS ORDERED: CHOLECALCIFEROL 5,000 UNIT TABLET PO SCH (09:00)
[2018-06-12] MEDS ORDERED: CYANOCOBALAMIN 500 MCG TABLET PO SCH (09:00)
[2018-06-12] MEDS ORDERED: amLODIPine 5 MG TABLET PO SCH (09:00)
[2018-06-12] MEDS ORDERED: SIMVASTATIN 10 MG TABLET PO SCH (09:00)
[2018-06-12] MEDS ORDERED: ASPIRIN EC 81 MG TABLET PO SCH (09:00)
== END 2018-06-11 15:25 | disposition home or self-care (01) | DRG 392 ==
LOC: N.ED 20:32 → N.EDINP 06-10 00:44 → N.3E 06-10 01:00
PROVIDERS: ADMIT Internal Medicine; ATTEND Internal Medicine

== ENCOUNTER 2019-06-10 13:31 | Observation (INO) ==
[2019-06-10] MEDS ORDERED: SODIUM CHLORIDE 0.9% 1,000 ML IV STA (13:52)
[2019-06-10 14:34] LABS: Basophils % 0.3 % (0.0-0.8); Eosinophils # 0.1 10*3/uL (0.0-0.87); Eosinophils % 1.4 % (0.00-10.9); Hematocrit 35.3 VOL% (35.7-47.0); Hemoglobin 11.4 GM/DL (12.0-16.0); Immature Granulocytes % 0.3 %; Immature Granulocytes Absolute 0.01 #; Lymphocytes # 0.6 10*3/uL (1.4-4.0); Lymphocytes % 16.8 % (21.3-54.2); Mean Corpuscular HGB Conc 32.3 GM/DL (32-36); Mean Corpuscular Volume 91.7 FL (87-102); Mean Platelet Volume 9.5 FL (9.6-12.0); Neutrophils % 70.2 % (38.7-73.9); Platelet Count 205 T/CUMM (130-400); Red Blood Count 3.85 MC/CUMM (3.8-5.5); Red Cell Distribution Width 13.3 % (9.3-17.3); White Blood Count 3.5 T/CUMM (4-12)
[2019-06-10 14:47] LABS: PT Patient Result 10.7 SECS (9.6-12.2)
[2019-06-10 14:53] LABS: Apearance,Urine CLOUDY (Clear); Bilirubin,Urine Negative (Negative); Blood, Urine Negative (Negative); Glucose,Urine (UA) Negative (Negative); Hyaline Casts,Urine 60 /LPF (0-3); Ketones,Urine Negative (Negative); Mucus,Urine Occasional /LPF (Occasional); Nitrite,Urine Negative (Negative); Protein,Urine Negative; RBC,Urine 1 /HPF (0-4); Urine Color Amber (Yellow); Urine Specific Gravity 1.021 (1.001-1.035); WBC,Urine <1 /HPF (0-6)
[2019-06-10 15:13] LABS: Alanine Aminotransferase 19 U/L (13-56); Albumin 3.6 G/DL (3.4-5.0); Alkaline Phosphatase 61 U/L (45-117); Aspartate Amino Transferase 21 U/L (0-37); Blood Urea Nitrogen 17 MG/DL (7-18); Calcium 8.6 MG/DL (8.5-10.1); Estimated Glom Filtration Rate 41 ML/MIN; Glucose 185 MG/DL (74-106); Osmolality,Calculated 287.3 MOS/KG (273-304); Total Protein 6.5 G/DL (6.4-8.3)
[2019-06-10 15:13] LABS: Barbiturates Screen,Urine Negative (Negative); Benzodiazepines Screen,Urine Negative (Negative); Cannabinoid Screen,Urine Negative (Negative); Opiate Screen,Urine Negative (Negative); Phencyclidine Screen,Urine Negative (Negative)
[2019-06-10] MEDS ORDERED: GLUCAGON 1 MG VIAL IM PRN (17:11)
[2019-06-10] MEDS ORDERED: ONDANSETRON 4 MG/2 ML VIAL IV PRN (17:11)
[2019-06-10] MEDS ORDERED: DEXTROSE 50% 25 GM/50 ML VIAL IV PRN (17:11)
[2019-06-10] MEDS ORDERED: ENOXAPARIN 40 MG/0.4 ML SYRINGE SUBCUT SCH (17:30)
[2019-06-10] MEDS: SODIUM CHLORIDE 0.9% 1,000 ML IV SCH (19:18)
[2019-06-10] MEDS ORDERED: CETIRIZINE 10 MG TABLET PO SCH (21:00)
[2019-06-10] MEDS ORDERED: LEVOTHYROXINE 25 MCG TABLET PO SCH (22:00)
[2019-06-10] MEDS: MAGNESIUM OXIDE 400 MG TABLET PO SCH (23:06)
[2019-06-10] MEDS: QUEtiapine 25 MG TABLET PO SCH (23:06)
[2019-06-10] MEDS: MEMANTINE 10 MG TABLET PO SCH (23:06)
[2019-06-10] MEDS: DONEPEZIL 10 MG TABLET PO SCH (23:06)
[2019-06-10] MEDS: lisinopriL 20 MG TABLET PO SCH (23:06)
[2019-06-11 05:06] LABS: Basophils % 0.7 % (0.0-0.8); Eosinophils # 0.1 10*3/uL (0.0-0.87); Eosinophils % 3.4 % (0.00-10.9); Hematocrit 34.1 VOL% (35.7-47.0); Hemoglobin 11.1 GM/DL (12.0-16.0); Immature Granulocytes % 0.3 %; Immature Granulocytes Absolute 0.01 #; Lymphocytes # 1.3 10*3/uL (1.4-4.0); Lymphocytes % 43.4 % (21.3-54.2); Mean Corpuscular HGB Conc 32.6 GM/DL (32-36); Mean Corpuscular Volume 90.9 FL (87-102); Monocytes % 13.2 % (1.7-12.7); Platelet Count 171 T/CUMM (130-400); Red Blood Count 3.75 MC/CUMM (3.8-5.5); Red Cell Distribution Width 13.6 % (9.3-17.3)
[2019-06-11 05:54] LABS: Albumin 2.9 G/DL (3.4-5.0); Bilirubin,Total 1.4 MG/DL (0.2-1.0); Calcium 8.1 MG/DL (8.5-10.1); Osmolality,Calculated 280.3 MOS/KG (273-304); Risk Ratio 1.97; Thyroid Stimulating Hormone 1.4 uIU/ml (0.358-3.74); Total Protein 5.7 G/DL (6.4-8.3); VLDL CHOLESTEROL 21.8 MG/DL
[2019-06-11] MEDS ORDERED: LEVOTHYROXINE 25 MCG TABLET PO SCH (06:30)
[2019-06-11] MEDS ORDERED: PANTOPRAZOLE 40 MG TABLET PO SCH (09:00)
[2019-06-11] MEDS ORDERED: ASPIRIN EC 81 MG TABLET PO SCH (09:00)
[2019-06-11] MEDS ORDERED: CLOPIDOGREL 75 MG TABLET PO SCH (09:00)
[2019-06-11] MEDS ORDERED: amLODIPine 5 MG TABLET PO SCH (09:00)
[2019-06-11] MEDS ORDERED: CHOLECALCIFEROL 5,000 UNIT TABLET PO SCH (09:00)
[2019-06-11] MEDS ORDERED: CYANOCOBALAMIN 500 MCG TABLET PO SCH (09:00)
[2019-06-11] MEDS ORDERED: CALCIUM (CARBONATE)/VITAMIN D 600 MG-400 UNIT TABLET PO SCH (09:00)
[2019-06-11] MEDS ORDERED: METOPROLOL SUCCINATE XL 25 MG TABLET PO SCH (09:00)
[2019-06-11] MEDS: QUEtiapine 25 MG TABLET PO SCH (09:33)
[2019-06-11] MEDS: DONEPEZIL 10 MG TABLET PO SCH (09:34)
[2019-06-11] MEDS: lisinopriL 20 MG TABLET PO SCH (09:34)
[2019-06-11] MEDS: MAGNESIUM OXIDE 400 MG TABLET PO SCH (09:34)
[2019-06-11] MEDS: MEMANTINE 10 MG TABLET PO SCH (09:35)
[2019-06-11] MEDS: SODIUM CHLORIDE 0.9% 1,000 ML IV SCH (09:36)
[2019-06-11 12:10] VITALS: BP 132/52
[2019-06-11] MEDS ORDERED: QUEtiapine 25 MG TABLET PO SCH (13:00)
[2019-06-11] MEDS ORDERED: SIMVASTATIN 10 MG TABLET PO SCH (21:00)
== END 2019-06-11 14:20 | disposition home or self-care (01) ==
LOC: EDBD → EDUNIT# → N.EDINP 13:31 → N.ED 13:31 → N.5E 18:01
PROVIDERS: ADMIT Emergency Medicine; ATTEND Emergency Medicine

== ENCOUNTER 2020-01-14 10:08 | Observation (INO) ==
[2020-01-14] MEDS ORDERED: SODIUM CHLORIDE 0.9% 1,000 ML IV STA (10:45)
[2020-01-14 11:40] LABS: Basophils % 0.6 % (0.0-0.8); Eosinophils # 0.1 10*3/uL (0.0-0.87); Eosinophils % 1.3 % (0.00-10.9); Hematocrit 39.1 VOL% (35.7-47.0); Hemoglobin 12.6 GM/DL (12.0-16.0); Immature Granulocytes % 0.6 %; Immature Granulocytes Absolute 0.03 #; Lymphocytes # 0.6 10*3/uL (1.4-4.0); Lymphocytes % 12.1 % (21.3-54.2); Mean Corpuscular HGB Conc 32.2 GM/DL (32-36); Mean Corpuscular Volume 89.9 FL (87-102); Monocytes % 10.8 % (1.7-12.7); Neutrophils % 74.6 % (38.7-73.9); Platelet Count 222 T/CUMM (130-400); Red Blood Count 4.35 MC/CUMM (3.8-5.5); White Blood Count 4.6 T/CUMM (4-12)
[2020-01-14 11:56] LABS: Alanine Aminotransferase 15 U/L (13-56); Albumin 2.7 G/DL (3.4-5.0); Alkaline Phosphatase 102 U/L (45-117); Aspartate Amino Transferase 15 U/L (0-37); Bilirubin,Total < 0.39 MG/DL (0.2-1.0); Blood Urea Nitrogen 11 MG/DL (7-18); Estimated Glom Filtration Rate 33 ML/MIN; Glucose 222 MG/DL (74-106); Total Protein 6.7 G/DL (6.4-8.3)
[2020-01-14 11:57] LABS: Apearance,Urine CLOUDY (Clear); Bacteria,Urine Moderate /HPF (Few); Bilirubin,Urine Negative (Negative); Blood, Urine Moderate mg/dL (Negative); Glucose,Urine (UA) 50 mg/dL (Negative); Hyaline Casts,Urine 73 /LPF (0-3); Ketones,Urine Negative (Negative); Mucus,Urine Few /LPF (Occasional); Nitrite,Urine Negative (Negative); Protein,Urine 100 MG/DL; RBC,Urine 8 /HPF (0-4); Squamous Epithelial Cell,Urine Occasional /HPF (0-10); Urine Color Amber (Yellow); Urine Specific Gravity 1.019 (1.001-1.035); Urine Urobilinogen < 2.0 EU/DL (0.2-1.0); WBC,Urine 901 /HPF (0-6)
[2020-01-14 12:03] LABS: Barbiturates Screen,Urine Negative (Negative); Benzodiazepines Screen,Urine Positive (Negative); Cannabinoid Screen,Urine Negative (Negative); Opiate Screen,Urine Negative (Negative); Phencyclidine Screen,Urine Negative (Negative)
[2020-01-14] MEDS ORDERED: cefTRIAXone 1,000 MG in SODIUM CHLORIDE 0.9% 100 ML IV STA (12:42)
[2020-01-14] MEDS ORDERED: ACETAMINOPHEN 325 MG TABLET PO PRN (14:10)
[2020-01-14] MEDS ORDERED: DEXTROSE 50% 25 GM/50 ML VIAL IV PRN (14:10)
[2020-01-14] MEDS ORDERED: DOCUSATE SODIUM 100 MG CAPSULE PO PRN (14:10)
[2020-01-14] MEDS ORDERED: ONDANSETRON 4 MG/2 ML VIAL IV PRN (14:10)
[2020-01-14] MEDS ORDERED: cefTRIAXone 1,000 MG in SYRINGE 1 EACH IV ONE (14:10)
[2020-01-14] MEDS ORDERED: GLUCAGON 1 MG VIAL IM PRN (14:10)
[2020-01-14 14:54] LABS: Risk Ratio 2.38; Thyroid Stimulating Hormone 2.77 uIU/ml (0.358-3.74)
[2020-01-14] MEDS: SODIUM CHLORIDE 0.9% 1,000 ML IV SCH (15:49)
[2020-01-14] MEDS: INSULIN LISPRO 100 UNIT/ML SUBCUT SCH (17:52)
[2020-01-14] MEDS ORDERED: ENOXAPARIN 30 MG/0.3 ML SYRINGE SUBCUT SCH (21:00)
[2020-01-15] MEDS: SODIUM CHLORIDE 0.9% 1,000 ML IV SCH (01:37)
[2020-01-15] MEDS: INSULIN LISPRO 100 UNIT/ML SUBCUT SCH ×2 (01:37→05:47)
[2020-01-15 05:52] LABS: Basophils % 0.6 % (0.0-0.8); Eosinophils # 0.1 10*3/uL (0.0-0.87); Eosinophils % 2.5 % (0.00-10.9); Hematocrit 34.2 VOL% (35.7-47.0); Immature Granulocytes % 0.6 %; Immature Granulocytes Absolute 0.02 #; Lymphocytes # 0.9 10*3/uL (1.4-4.0); Lymphocytes % 24.4 % (21.3-54.2); Mean Corpuscular HGB Conc 32.2 GM/DL (32-36); Mean Corpuscular Volume 90.2 FL (87-102); Mean Platelet Volume 9.1 FL (9.6-12.0); Monocytes % 16.3 % (1.7-12.7); Neutrophils % 55.6 % (38.7-73.9); Platelet Count 198 T/CUMM (130-400); Red Blood Count 3.79 MC/CUMM (3.8-5.5); White Blood Count 3.6 T/CUMM (4-12)
[2020-01-15 06:40] LABS: Band Neutrophils 1 % (0-10); Eosinophils 1 % (0-10); Hypochromasia 1+; Lymphocytes 26 % (20-55); Nucleated Red Blood Cells 1 (0-5); Segmented Neutrophils 58 % (50-85); Total Cells Counted 100
[2020-01-15 06:41] LABS: Microcytosis 1+; Ovalocytes Few; Platelet Estimate Adequate
[2020-01-15 06:50] LABS: Calcium 8.1 MG/DL (8.5-10.1); Osmolality,Calculated 278.4 MOS/KG (273-304)
[2020-01-15 08:27] VITALS: BP 143/74
[2020-01-15] MEDS ORDERED: ASCORBIC ACID 500 MG TABLET PO SCH (09:00)
[2020-01-15] MEDS ORDERED: DEXAMETHASONE 4 MG/1 ML VIAL IV SCH (09:00)
[2020-01-15] MEDS ORDERED: AZITHROMYCIN 250 MG TABLET PO SCH (09:00)
[2020-01-15] MEDS ORDERED: ZINC SULFATE 220 MG CAPSULE PO SCH (09:00)
[2020-01-15] MEDS ORDERED: cefTRIAXone 2,000 MG in SYRINGE 1 EACH IV SCH (14:30)
== END 2020-01-15 09:04 | disposition left against medical advice (07) ==
LOC: N.ED 10:08 → N.EDINP 10:08 → SUATTDRO 13:24 → N.5E 14:04
PROVIDERS: ADMIT Emergency Medicine; ATTEND Internal Medicine